=== PATIENT | female | born 1955 | race Caucasian/White ===

== ENCOUNTER 2017-11-05 08:40 | Emergency (ER) | payer MEDICAID ==
[2017-11-05 09:56] LABS: BASOPHIL % 0.3 % (0-2); PLATELET COUNT 199 x10^3mcL (130-400)
[2017-11-05 10:10] LABS: CALCIUM 8.6 mg/dL (8.5-10.1); CARBON DIOXIDE 27.1 mmol/L (21-32); CHLORIDE SERUM 104 mmol/L (98-107); CREATININE SERUM 0.6 mg/dL (0.6-1.0); GFR1 > 60 mL/min; GLUCOSE SERUM 105 mg/dL (74-106); POTASSIUM SERUM 4.1 mmol/L (3.5-5.1); SODIUM SERUM 139 mmol/L (136-145)
[2017-11-05 10:15] LABS: ALBUMIN 3.6 g/dL (3.4-5.0); ALKALINE PHOSPHATASE 100 U/L (46-116); ALT/SGPT 46 U/L (14-59); AST/SGOT 30 U/L (15-37); BILIRUBIN TOTAL 0.5 mg/dL (0.20-1.00)
[2017-11-05 11:59] VITALS: BP 145/78
== END 2017-11-05 11:59 | disposition home or self-care (01) ==
LOC: ED 08:40
PROVIDERS: Emergency Medicine
DX: R04.0 Epistaxis (principal); R07.81 Pleurodynia; I10 Essential (primary) hypertension
CPT/HCPCS: 36415; 83880; 85378; Q0092

== ENCOUNTER 2019-11-23 19:01 | Emergency (ER) | payer MEDICAID ==
[~2019-11-23] VITALS: Ht 154.9 cm; Wt 100.7 kg
[2019-11-23 19:11] VITALS: BP 176/63; Ht 154.9 cm; Wt 100.7 kg
== END 2019-11-23 20:09 | disposition home or self-care (01) ==
LOC: ED 19:01
DX: J20.9 Acute bronchitis, unspecified (principal); I10 Essential (primary) hypertension; M54.9 Dorsalgia, unspecified